=== PATIENT | female | born 1960 | race Two or more races ===

== ENCOUNTER 2020-09-05 07:12 | Day surgery (SDC) | payer BC, OTHER ==
[2020-08-28 17:25] VITALS: BMI 26.2
--- OUTSIDE RECORDS SUMMARY | 2020-09-05 07:00 | XMS ---
:1960 Author Organization [facility] Support Name Relationship Address Phone DEPT OF EDUCATION Unavailable [id number] [place] [address] SCO[address]ER E[address] [facility] [place] [address] Re-disclosure Warning The records that you are about to access may contain information from federally- assisted alcohol or drug abuse programs. If such information is present, then the following federally mandated warning applies: This information has been disclosed to you from records protected by federal confidentiality rules (42 CFR part 2). The federal rules prohibit you from making any further disclosure of this information unless further disclosure is expressly permitted by the written consent of the person to whom it pertains or as otherwise permitted by 42 CFR part 2. A general authorization for the release of medical or other information is NOT sufficient for this purpose. The Federal rules restrict any use of the information to criminally investigate or prosecute any alcohol or drug abuse patient.The records that you are about to access may contain highly sensitive health information, the redisclosure of which is protected by Article 27-F of the [facility] Public Health law. If you continue you may haveaccess to information: Regarding HIV / AIDS; Provided by facilities licensed or operated by the [facility] Office of Mental Health; or Provided by the [facility] Office for People With Developmental Disabilities. If such information is present, then the following [facility] mandated warning applies: This information has been disclosed to you from confidential records which are protected by state law. State law prohibits you from making any further disclosure of this information without the specific written consent of the person to whom it pertains, or as otherwise permitted by law. Any unauthorized further disclosure in violation of state law may result in a fine or assisted sentence or both. A general authorization for the release of medical or other information is NOT sufficient authorization for further disclosure. Insurance Providers Payer name Policy type / Policy ID Covered Covered green party's Policy Plan Coverage type green party ID relationship to Silvestre Information silvestre BC PPO [id number] SP [id number] GHI CBP [id number] SP [id number] 01 OUTPT 1 Results ID Date Data Source [id number] 09/01/2020 10:24:00 AM EDT [facility] Name Value Range Interpretation Description Data Sup porting Code Source(s) Document(s ) SARS [facility] coronavirus 2 RNA This lab was ordered by SALO osorio [facility] and reported by [facility]. ID Date Data Source [id number] 08/02/2020 12:00:00 AM EDT [facility] Name Value Range Interpretation Code Description Data Shelly rce(s) Supporting Document(s ) 2018-nCoV [facility] RNA XXX ROWAN+probe- Imp This lab was ordered by [facility] ([facility]) and reported by [employer] ID Date Data Source [id number] 03/05/2020 12:00:00 AM EDT [facility] Name Value Range Interpretation Code Description Data Shelly rce(s) Supporting Document(s ) 2018-nCoV [facility] RNA XXX ROWAN+probe- Imp [facility] and reported by [employer] Procedure
[~2020-09-05 07:12] MED LIST: VANCOMYCIN 1,000 MG VIAL (RESTRICTED TO ID ONLY) IVPB ONE
[2020-09-05] MEDS ORDERED: CEFAZOLIN 2 GM in DEXTROSE 5%-WATER - 50 ML IVPB ONE (08:00)
[2020-09-05] MEDS ORDERED: TRANEXAMIC ACID 1000 MG/10 ML VIAL IVPUSH ONE (08:00)
--- NOTE | 2020-09-05 08:09 | HP ---
Satellite [facility] - Chief Complaint Chief Complaint: right knee pain - Past Medical History Allergies/Adverse Reactions: Allergies Allergy/AdvReac Type Severity Reaction Status Date / Time No Known Allergies Allergy Verified 08/28/20 17:07 - Current Medications Current Medications: Home Medications Medication Instructions Recorded Amlodipine Besylate 2.5 mg PO DAILY 08/28/20 Krill/Om-3/Dha/Epa/Phospho/Ast 1 each PO DAILY 08/28/20 [Krill Oil 500 mg Softgel] Losartan/Hydrochlorothiazide 1 each PO DAILY 08/28/20 [Losartan-Hctz 100-25 mg Tab] Multivitamin 1 each PO DAILY 08/28/20 Ubidecarenone [Co Q-10] 100 mg PO DAILY 08/28/20 Satellite Physical Exam - Physical Examination Vital Signs: Vital Signs Period Temp Pulse Resp BP Sys/Whitman Pulse Ox Last 24 Hr 98.7 F 76 18 129/72 98 General Appearance: Well Nourished, Well Developed, Alert & Oriented x3 ENT: Clear Lung: Normal air movement Extremities: Other (right knee- +swelling, + ttp, decr rom, nvi, xrays show grade 4 tricompartmental djd) Neurological: Intact, Alert, Oriented Satellite Impression/Plan - Impression/Plan Impression: right knee djd Operative Procedure: right marcell tkr Date to be Performed: 09/05/20
[2020-09-05] MEDS ORDERED: MIDAZOLAM HCL 2 MG/2 ML SINGLE DOSE VIAL ONE ×2 (08:12→09:50)
[2020-09-05] MEDS ORDERED: SODIUM CHLORIDE 0.9% P/F 10 ML VIAL IJ ONE (08:12)
[2020-09-05] MEDS ORDERED: BUPIVACAINE LIPOSOME/PF (EXPAREL) 266 MG/20 ML VIAL ONE (08:12)
[2020-09-05] MEDS ORDERED: VANCOMYCIN 1,000 MG VIAL (RESTRICTED TO ID ONLY) ONE (08:25)
[2020-09-05] MEDS ORDERED: ceFAZolin SODIUM 1 GM VIAL ONE (08:25)
[2020-09-05] MEDS ORDERED: MAGNESIUM HYDROX 2400MG/30ML ORAL SUSPENSION 30 ML CUP PO PRN (09:39)
[2020-09-05] MEDS ORDERED: ONDANSETRON 4 MG/2 ML VIAL IVPUSH PRN (09:39)
[2020-09-05] MEDS ORDERED: MAG HYDROX/AL HYDROX/SIMETH 30 ML UNIT-DOSE CUP PO PRN (09:39)
[2020-09-05] MEDS ORDERED: LACTATED RINGERS SOLUTION 1,000 ML IV SCH (09:45)
[2020-09-05] MEDS ORDERED: PROPOFOL 20 ML ONE ×2 (09:50→10:21)
[2020-09-05] MEDS ORDERED: amLODIPine BESYLATE 5 MG TABLET (FP) PO SCH (10:00)
[2020-09-05] MEDS ORDERED: PATIENT'S OWN MEDICATION (NON-FORMULARY) (Losartan/Hydrochlorothiazide [Losartan-Hctz 100- PO SCH (10:00)
[2020-09-05] MEDS ORDERED: VANCOMYCIN 1,000 MG VIAL (RESTRICTED TO ID ONLY) IVPB ONE (11:08)
--- NOTE | 2020-09-05 11:32 | OP ---
Operative Note - Note: Operative Date: 09/05/20 (kaitlin) Pre-Operative Diagnosis: right knee djd Operation: right marcell tkr Post-Operative Diagnosis: Same as Pre-op Surgeon: Solomon Garcia Television Repairman: Rafael Pelayo Anesthesiologist/AIR VALVE MECHANIC: Billie Nair MD Anesthesia: Spinal, Local Specimens Removed: bone fragments Estimated Blood Loss (mls): 150
[2020-09-05] MEDS ORDERED: oxyCODONE HCL 5 MG TABLET PO PRN (11:45)
[2020-09-05] MEDS ORDERED: ACETAMINOPHEN 325 MG TABLET (FP) ONE (12:19)
[2020-09-05] MEDS: ACETAMINOPHEN 325 MG TABLET (FP) PO SCH ×2 (12:22→18:12)
--- OUTSIDE RECORDS SUMMARY | 2020-09-05 13:50 | XMS ---
:1960 Author Organization [facility] Support Name Relationship Address Phone DEPT OF EDUCATION Unavailable [address] [place] [address] [address] [facility] [place] [address] Re-disclosure Warning The records that you are [...] is protected by Article 27-F of the [facility] Public Health law. If you continue you may haveaccess to information: Regarding HIV / AIDS; Provided by facilities licensed or operated by the [facility] Office of Mental Health; or Provided by the [facility] Office for People With Developmental Disabilities. If such information is present, then the following [facility] mandated warning applies: This information has been [...] law may result in a fine or skilled nursing sentence or both. A general authorization for the release of medical or other information is NOT sufficient authorization for further disclosure. Insurance Providers Payer name Policy type / Policy ID Covered Covered green party's Policy Plan Coverage type green party ID relationship to Silvestre Information silvestre BC PPO [id number] SP [id number] GHI CBP [id number] SP [id number] 01 OUTPT 1 Results ID Date Data Source [id number] 09/01/2020 10:24:00 AM EDT [facility] Name Value Range Interpretation Description Data Sup porting Code Source(s) Document(s ) SARS [facility] coronavirus 2 RNA This lab was ordered by SALO osorio [facility] and reported by [facility]. ID Date Data Source [id number] 08/02/2020 12:00:00 AM EDT [facility] Name Value Range Interpretation Code Description Data Shelly rce(s) Supporting Document(s ) 2018-nCoV [facility] RNA XXX ROWAN+probe- Imp This lab was ordered by [facility] ([facility]) and reported by [employer] ID Date Data Source [id number] 03/05/2020 12:00:00 AM EDT [facility] Name Value Range Interpretation Code Description Data Shelly rce(s) Supporting Document(s ) 2018-nCoV [facility] RNA XXX ROWAN+probe- Imp [facility] and reported by [employer] Procedure
[2020-09-05] MEDS: PANTOPRAZOLE 40 MG TABLET PO SCH (13:55)
--- NOTE | 2020-09-05 14:33 | SPEC ---
DATE OF OPERATION: 09/05/2020 PREOPERATIVE DIAGNOSIS: Degenerative joint disease, right knee. POSTOPERATIVE DIAGNOSIS: Degenerative joint disease, right knee. PROCEDURE: Right total knee replacement with robotic-assisted navigation (Makoplasty). SURGICAL ATTENDING: Solomon Garcia M.D. AIRCRAFT RIVETER: Kwasi Patel ANESTHESIA: Regional and spinal. CLOSURE: A Triathlon cemented total knee system with a 2 femur, 2 tibia with a 50-mm stem, 11 polyethylene, 32 patella, number 1 Vicryl fascia, 0 and 2-0 subcutaneous, 3-0 Monocryl subcuticular with skin glue for skin, 4-0 undyed Vicryl for pin site. ESTIMATED BLOOD LOSS: Negligible. COMPLICATIONS: None. CONDITION: To recovery room in stable condition. DESCRIPTION OF OPERATIVE PROCEDURE: Patient was taken to the operating room on September 05, 2020. Regional and general anesthesia was administered by the anesthesiologist. IV Kefzol and TXA were administered by the anesthesiologist. Well-padded pneumatic tourniquet was placed on the proximal thigh. The right lower extremity was prepped and draped in the usual sterile fashion. The leg was exsanguinated with an Esmarch bandage, and tourniquet was inflated to 275 mmHg. A 12 to 15-cm longitudinal midline incision was incised while centered over the patella. The dissection was carried down to the level of the extensor mechanism with sufficient flaps made to adequately perform the procedure. A medial parapatellar arthrotomy was then performed. We made a cuff of tissue on the patella for later closure. The patella was inverted, the knee was flexed up. The fat pad was excised. The subperiosteal dissection was on the anteromedial proximal tibia around towards the direction of the MCL. The ACL and the PCL were transected and debrided. The meniscal remnants of the medial and lateral meniscus were debrided and removed. This allowed the knee to be able to "be brought forward." The checkpoints were malleted into the tibia and into the femur. Two threaded pins were drilled anteroposteriorly proximal to the knee through the previous incision, through the anterior cortex, then just engaging the posterior cortex. To these pins was assembled the femoral navigation array. One handbreadth below the tibial tubercle, 2 stab incisions were used to drill 2 threaded pins in parallel fashion into the tibia, again through the anterior cortex and just engaging the posterior cortex. To these pins was fastened the tibial arrays. The knee was then registered with the navigation device with center of rotation of the hip, medial and lateral malleoli, both checkpoints, and multiple points on both the femur and the tibia to ensure excellent registration. The navigation device was directed off the "top of the bubbles" on both the femur and the tibia. The navigation passed within less than 0.5 mm to plan. The knee was then thoroughly inspected to remove all osteophytes both medially, laterally, and on the femur and the tibia, and whatever osteophytes were available for dissection. The knee was then taken to extension and to flexion, and stressed in both varus and valgus to assess flexion gaps. The virtual position of the components on the navigation device were then manipulated to optimize the position and to ensure equal gaps in both flexion and extension, and both medially and laterally. The robot was then brought into the field and was registered. The cuts were then made both on the femur and on the tibia as to plan. All osteophytes posteriorly were then removed as well. The gaps were then measured again in flexion and extension to be equal in both flexion and extension and medial and laterally. The femoral notch was then made, as we were doing a posterior stabilizing component, with the appropriate sized box. Trial reduction of the femur achieved excellent [id number] fit. A tibial baseplate of appropriate polyethylene thickness was "floated in the knee." It was ensured to be in the excellent position by navigation devices and was pinned in place. The knee was taken through a range of motion, and found to have excellent stability throughout flexion and extension. The patella was calibrated for thickness and osteotomized down to the appropriate level. The appropriate lollipop was used to drill the lug holes in the patella and the trial button was applied. The knee was taken through a range of motion and found to have excellent tracking of the patella, and patella from full extension to full flexion. Trial components were removed, the keel was punched and drilled, and a sclerotic bone on the tibia was drilled to help with cement interdigitation. The knee was thoroughly irrigated with the pulse antibiotic jack strip assembler. The real components were then cemented in using monitored arrangement cement techniques with antibiotic cement, and pressurization and extension. After the cement was hardened, the knee was thoroughly inspected to remove any extra cement. The real polyethylene component was then clipped into place. Range of motion, stability, and tracking were as described earlier. The checkpoints and the pins were removed. The knee was thoroughly irrigated with antibiotic irrigation. Vancomycin powder was placed into the knee for antibiotic prophylaxis. The medial parapatellar arthrotomy was then closed using number 1 Vicryl interrupted suture. After closure of the deep layer, the knee was taken through a range of motion, and found to have excellent stability of the patella with no dislocation and no undue tension on the repair. The subcutaneous was pulse antibiotic irrigated, and was then closed with 2-0 Vicryl, 3-0 Monocryl subcuticular with the skin glue for the skin. The distal tibial pin site was irrigated thoroughly as well and then closed with 4-0 undyed Vicryl. A sterile Aquacel dressing was applied, followed by a Irwin dressing. Tourniquet was deflated. Total tourniquet time was approximately 75 minutes. No complications. Patient was awakened from anesthesia and transferred to recovery room in stable condition. Postoperative x-rays revealed excellent position of the components. Caprice [id number]
[2020-09-05] MEDS: oxyCODONE HCL 5 MG TABLET PO PRN ×2 (17:01→19:40)
[2020-09-05] MEDS: CEFAZOLIN 2 GM/D5W 2 GM/50 ML ML IVPB SCH (18:12)
[2020-09-05] MEDS: SENNOSIDES/DOCUSATE COMBO (SENNA PLUS) TABLET (UD) PO SCH (21:29)
[2020-09-05] MEDS: oxyCODONE HCL 10 MG SUSTAINED ACTING TABLET PO SCH (22:52)
[2020-09-06] MEDS: CEFAZOLIN 2 GM/D5W 2 GM/50 ML ML IVPB SCH (01:20)
[2020-09-06] MEDS: ACETAMINOPHEN 325 MG TABLET (FP) PO SCH ×5 (06:00→23:50)
[2020-09-06 07:53] LABS: HEMATOCRIT 34.8 % (32.4-45.2); HEMOGLOBIN 11.3 GM/dl (10.7-15.3); MCH 30.5 pg (25.7-33.7); MCHC 32.5 g/dl (32.0-36.0); MEAN CELL VOLUME 93.8 fl (80-96); MEAN PLT VOLUME 9.8 fl (7.5-11.1); PLATELET COUNT 298 K/MM3 (134-434); RBC 3.71 M/mm3 (3.60-5.2); RDW 12.9 % (11.6-15.6); WHITE BLOOD COUNT 7.6 K/mm3 (4.0-10.8)
[2020-09-06] MEDS: SENNOSIDES/DOCUSATE COMBO (SENNA PLUS) TABLET (UD) PO SCH ×2 (09:06→21:15)
[2020-09-06] MEDS: PANTOPRAZOLE 40 MG TABLET PO SCH (09:06)
[2020-09-06] MEDS: ASPIRIN 325 MG TABLET PO SCH (09:06)
[2020-09-06] MEDS: MULTIVITAMINS (DAILY MVI) TABLET (FP) PO SCH (09:07)
[2020-09-06] MEDS: amLODIPine BESYLATE 2.5 MG TABLET (FP) PO SCH (09:07)
--- NOTE | 2020-09-06 09:17 | PN ---
Progress Note (short form) - Note Progress Note: Ortho Pt seen and examined s/p right marcell tkr pod #1. c/o dizziness and nausea. Selected Entries 09/06/20 06:00 Temperature 99.2 F Pulse Rate 79 Respiratory 18 Rate Blood Pressure 151/67 Laboratory Tests 09/06/20 06:57 WBC 7.6 Hgb 11.3 Hct 34.8 Plt Count 298 dressing c/d/i, rom 0-80, calf soft ,nt nvi a/p decrease opiates, change to toradol PT dvt ppx pain control d/c planning for today/tomorrow
--- NOTE | 2020-09-06 09:54 | PN ---
Progress Note (short form) - Note Progress Note: Anesthesia postop note 60 y/o F s/p spinal anesthesia and PNB for marcell knee replacement. POD31, va, aaox3, pain well controlled, sensory motor intact distally.No anesthesia complications.
[2020-09-06] MEDS ORDERED: LOSARTAN 50MG/HCTZ 12.5MG 1 TAB PO SCH (10:00)
[2020-09-06] MEDS: oxyCODONE HCL 10 MG SUSTAINED ACTING TABLET PO SCH (11:21)
--- NOTE | 2020-09-06 13:19 | CONSULT ---
Consultation: REQUESTING PROVIDER: Dr. Solomon Garcia CONSULT REQUEST: We have been asked to medically evaluate this patient post-operatively for nausea and dizziness. HISTORY OF PRESENT ILLNESS: 60 year-old female with a PMH significant for HTN, asthma, COVID-19 infection (March 2020), and OA bilateral knees s/p right SOLITARIO total knee replacement on 09/05/[address] Garcia. Patient became nauseous and light-headed during PT this morning. REVIEW OF SYSTEMS: CONSTITUTIONAL: Absent: fever, chills, diaphoresis, generalized weakness, malaise, loss of appetite, weight change HEENT: Absent: rhinorrhea, nasal congestion, throat pain, throat swelling, difficulty swallowing, mouth swelling, ear pain, eye pain, visual changes CARDIOVASCULAR: Absent: chest pain, syncope, palpitations, irregular heart rate, lightheadedness, peripheral edema RESPIRATORY: Absent: cough, shortness of breath, dyspnea with exertion, orthopnea, wheezing, stridor, hemoptysis GASTROINTESTINAL: +nausea Absent: abdominal pain, abdominal distension, vomiting, diarrhea, constipation, melena, hematochezia GENITOURINARY: Absent: dysuria, frequency, urgency, hesitancy, hematuria, flank pain, genital pain MUSCULOSKELETAL: Absent: myalgia, arthralgia, joint swelling, back pain, neck pain SKIN: Absent: rash, itching, pallor HEMATOLOGIC/IMMUNOLOGIC: Absent: easy bleeding, easy bruising, lymphadenopathy, frequent infections ENDOCRINE: Absent: unexplained weight gain, unexplained weight loss, heat intolerance, cold intolerance NEUROLOGIC: +dizziness Absent: headache, focal weakness or paresthesias, dizziness, unsteady gait, seizure, mental status changes, bladder or bowel incontinence PSYCHIATRIC: Absent: anxiety, depression, suicidal or homicidal ideation, hallucinations. PHYSICAL EXAMINATION Vital Signs - 24 hr 09/05/20 09/05/20 09/05/20 13:05 18:00 19:43 Temperature 97.6 F 99.1 F Pulse Rate 59 L 75 Respiratory 16 18 18 Rate Blood Pressure 140/64 153/67 O2 Sat by Pulse 98 99 99 Oximetry (%) 09/05/20 09/06/20 09/06/20 22:00 01:52 06:00 Temperature 98.6 F 98.7 F 99.2 F Pulse Rate 83 74 79 Respiratory 18 18 18 Rate Blood Pressure 146/76 122/63 151/67 O2 Sat by Pulse 98 96 98 Oximetry (%) GENERAL: Awake, alert, and fully oriented, in no acute distress. LUNGS: Breath sounds equal, clear to auscultation bilaterally. No wheezes, and no crackles. No accessory muscle use. HEART: Regular rate and rhythm, normal S1 and S2 UPPER EXTREMITIES: 2+ pulses, warm, well-perfused. No cyanosis. No clubbing. Cap refill <2 seconds. No peripheral edema. RLE: Surgical dressing c/d/i; +flex/extend toes, sensory intact NEUROLOGICAL: Cranial nerves II-XII intact. Normal speech. Normal gait. PSYCHIATRIC: Cooperative. Good eye contact. Appropriate mood and affect. SKIN: Warm, dry, normal turgor, no rashes or lesions noted. Laboratory Results - last 24 hr 09/06/20 06:57 WBC 7.6 RBC 3.71 Hgb 11.3 Hct 34.8 MCV 93.8 MCH 30.5 MCHC 32.5 RDW 12.9 Plt Count 298 MPV 9.8 Current Medications Generic Name Dose Route Start Last Admin Trade Name Freq PRN Reason Stop Dose Admin Acetaminophen 650 mg 09/05/20 12:00 09/06/20 12:00 Tylenol - PO 09/08/20 11:59 650 mg Q6H VALERI Administration Al Hydroxide/Mg Hydroxide 30 ml 09/05/20 09:39 Mylanta Oral Suspension - PO Q4H PRN DYSPEPSIA Amlodipine Besylate 2.5 mg 09/06/20 10:00 09/06/20 09:07 Norvasc - PO 2.5 mg DAILY VALERI Administration Aspirin 325 mg 09/06/20 08:00 09/06/20 09:06 Asa - PO 325 mg DAILY@0800 VALERI Administration HCTZ/Losartan Potassium 2 tab 09/06/20 10:00 09/06/20 09:06 Hyzaar - PO 2 tab DAILY VALERI Administration Magnesium Hydroxide 30 ml 09/05/20 09:39 Milk Of Magnesia - PO PRN PRN CONSTIPATION Multivitamins/Minerals/Vitamin C 1 tab 09/06/20 10:00 09/06/20 09:07 Tab-A-Vit - PO 1 tab DAILY VALERI Administration Ondansetron HCl 4 mg 09/05/20 09:39 Zofran Injection IVPUSH Q6H PRN NAUSEA Pantoprazole Sodium 40 mg 09/05/20 10:00 09/06/20 09:06 Protonix - PO 40 mg DAILY VALERI Administration Senna/Docusate Sodium 2 tablet 09/05/20 22:00 09/06/20 09:06 Pericolace - PO 2 tablet BID VALERI Administration ASSESSMENT/PLAN: 60 year-old female with a PMH significant for HTN, asthma, COVID-19 infection (March 2020), and OA bilateral knees s/p right SOLITARIO total knee replacement on 09/05/[address] Garcia. Patient became nauseous and light-headed during PT this morning. Nausea Lightheadedness --check orthostatics, IV fluids if indicated; encourage PO fluids --stop opioids, Tylenol for pain; discussed with patient, she is agreeable to this plan Hypertension --BP has been stable, continue losartan and amlodipine, hold HCTZ Asthma --stable COVID negative 09/01 Dispo: We will continue to follow the patient. Thank you for this consultative opportunity. Visit type - Emergency Visit Emergency Visit: No - New Patient This patient is new to me today: Yes Date on this admission: 09/06/20 - Critical Care Critical Care patient: No
[2020-09-06] MEDS ORDERED: SODIUM CHLORIDE 1,000 ML IV SCH (13:30)
[2020-09-07] MEDS ORDERED: ACETAMINOPHEN 325 MG TABLET (FP) PO PRN (00:10)
[2020-09-07] MEDS: ACETAMINOPHEN 325 MG TABLET (FP) PO SCH ×2 (06:55→12:16)
[2020-09-07] MEDS: ASPIRIN 325 MG TABLET PO SCH (09:11)
[2020-09-07] MEDS: MULTIVITAMINS (DAILY MVI) TABLET (FP) PO SCH (09:11)
[2020-09-07] MEDS: PANTOPRAZOLE 40 MG TABLET PO SCH (09:11)
[2020-09-07] MEDS: amLODIPine BESYLATE 2.5 MG TABLET (FP) PO SCH (09:11)
[2020-09-07] MEDS: SENNOSIDES/DOCUSATE COMBO (SENNA PLUS) TABLET (UD) PO SCH (09:12)
--- NOTE | 2020-09-07 09:22 | PN ---
Physical Exam: SUBJECTIVE: Patient seen and examined oob to chair. OBJECTIVE: Vital Signs Period Temp Pulse Resp BP Sys/Whitman Pulse Ox Last 24 Hr 97.5 F-99.1 F 76-99 18-19 133-144/53-72 79-98 GENERAL: Awake, alert, and fully oriented, in no acute distress. LUNGS: Breath sounds equal, clear to auscultation bilaterally. No wheezes, and no crackles. No accessory muscle use. HEART: Regular rate and rhythm, normal S1 and S2 UPPER EXTREMITIES: 2+ pulses, warm, well-perfused. No cyanosis. No clubbing. Cap refill <2 seconds. No peripheral edema. RLE: Surgical dressing c/d/i; +flex/extend toes, sensory intact NEUROLOGICAL: Cranial nerves II-XII intact. Normal speech. Normal gait. PSYCHIATRIC: Cooperative. Good eye contact. Appropriate mood and affect. SKIN: Warm, dry, normal turgor, no rashes or lesions noted. Active Medications Generic Name Dose Route Start Last Admin Trade Name Freq PRN Reason Stop Dose Admin Acetaminophen 650 mg 09/05/20 12:00 09/07/20 06:55 Tylenol - PO 09/08/20 11:59 650 mg Q6H VALERI Administration Acetaminophen 650 mg 09/07/20 00:10 Tylenol - PO Q6H PRN PAIN LEVEL 7 - 10 Al Hydroxide/Mg Hydroxide 30 ml 09/05/20 09:39 Mylanta Oral Suspension - PO Q4H PRN DYSPEPSIA Amlodipine Besylate 2.5 mg 09/06/20 10:00 09/07/20 09:11 Norvasc - PO 2.5 mg DAILY VALERI Administration Aspirin 325 mg 09/06/20 08:00 09/07/20 09:11 Asa - PO 325 mg DAILY@0800 VALERI Administration Losartan Potassium 50 mg 09/07/20 10:00 09/07/20 09:11 Cozaar - PO 50 mg DAILY VALERI Administration Magnesium Hydroxide 30 ml 09/05/20 09:39 Milk Of Magnesia - PO PRN PRN CONSTIPATION Multivitamins/Minerals/Vitamin C 1 tab 09/06/20 10:00 09/07/20 09:11 Tab-A-Vit - PO 1 tab DAILY VALERI Administration Ondansetron HCl 4 mg 09/05/20 09:39 Zofran Injection IVPUSH Q6H PRN NAUSEA Pantoprazole Sodium 40 mg 09/05/20 10:00 09/07/20 09:11 Protonix - PO 40 mg DAILY VALERI Administration Senna/Docusate Sodium 2 tablet 09/05/20 22:00 09/07/20 09:12 Pericolace - PO Not Given BID VALERI ASSESSMENT/PLAN: 60 year-old female with a PMH significant for HTN, asthma, COVID-19 infection (March 2020), and OA bilateral knees s/p right SOLITARIO total knee replacement on 09/05/[address] Garcia. Nausea Lightheadedness --was mildly orthostatic, received NS 1L x 1 with resolution of symtpoms --continue to hold opioids, Tylenol for pain; discussed with patient, she is agreeable to this plan Hypertension --BP has been stable, continue losartan and amlodipine, hold HCTZ, may resume on discharge Asthma --stable COVID negative 09/01 Dispo: We will sign off at this time. Thank you for this consultative opportunity. Visit type - Emergency Visit Emergency Visit: No - New Patient This patient is new to me today: No - Critical Care Critical Care patient: No - Discharge Referral Referred to [facility] No
[2020-09-07 09:58] LABS: HEMATOCRIT 31.9 % (32.4-45.2); HEMOGLOBIN 10.6 GM/dl (10.7-15.3); MCH 30.8 pg (25.7-33.7); MCHC 33.1 g/dl (32.0-36.0); MEAN CELL VOLUME 92.9 fl (80-96); MEAN PLT VOLUME 9.9 fl (7.5-11.1); PLATELET COUNT 282 K/MM3 (134-434); RBC 3.43 M/mm3 (3.60-5.2); RDW 12.7 % (11.6-15.6); WHITE BLOOD COUNT 8.5 K/mm3 (4.0-10.8)
[2020-09-07] MEDS ORDERED: LOSARTAN POTASSIUM 50 MG TABLET PO ONE (10:00)
[2020-09-07] MEDS ORDERED: LOSARTAN POTASSIUM 50 MG TABLET PO SCH (10:00)
--- NOTE | 2020-09-07 10:13 | PN ---
Progress Note (short form) - Note Progress Note: Ortho Pt seen and examined s/p right marcell tkr pod #2. Pt is feeling much better this am. Selected Entries 09/07/20 09:00 Temperature 98.4 F Pulse Rate 86 Respiratory 18 Rate Blood Pressure 133/65 Laboratory Tests 09/07/20 06:57 WBC 8.5 Hgb 10.6 L Hct 31.9 L Plt Count 282 dressing c/d/i, rom 0-80, calf soft ,nt nvi a/p PT dvt ppx pain control d/c home today f/u in 1 week
--- NOTE | 2020-09-07 10:15 | DS ---
Physical Examination Vital Signs: Vital Signs Temperature 98.4 F 09/07/20 09:00 Pulse Rate 86 09/07/20 09:00 Respiratory Rate 18 09/07/20 09:00 Blood Pressure 133/65 09/07/20 09:00 O2 Sat by Pulse Oximetry (%) 98 09/07/20 09:00 Labs: CBC, BMP 09/07/20 06:57 Discharge Summary Problems reviewed: Yes Reason For Visit: OSTEOARTHRITIS Procedures: Principal: right marcell tkr Hospital Course: admitted for elective right marcell tkr, post-op per protocol ,stable for d/c Condition: Good - Instructions Diet, Activity, Other Instructions: Post-op Instructions-Total Knee Replacement Call the office for a follow-up appointment in 1 week - [phone] Aspirin 325mg daily for 6 weeks. Pain medication was sent into your pharmacy. Apply Graduated Compression Stockings (TEDs) to both lower extremities- remove daily for hygiene ONLY Apply Sequential Compression Device (SCDs) to both Lower extremities remove for PT and hygiene ONLY Apply cold packs to affected area for 15 minutes every 2 hours. Physical Therapist will come to your home for the first 5 days. You will be set up with outpatient PT at your first post-operative visit. Patient may ambulate as tolerated-encourage self care (at least every 2-3 hours while awake) with walker or cane Maintain Aquacel (waterproof) dressing to operative wound (will be removed by surgeon at first office visit) Shower with Aquacel dressing in place-if Aquacel integrity compromised, remove and apply dry sterile dressing and notify Orthopedist. DO NOT SHOWER unless Orthopedists approves without Aquacel dressing CONTACT THE OFFICE FOR ANY CHANGE IN YOUR CONDITION (for example-fever greater than 102 degrees, excessive bleeding from operative site, purulent drainage, severe swelling or pain) GO TO THE EMERGENCY ROOM IF THERE IS A MEDICAL EMERGENCY Knee Precautions: * Keep a rolled towel under affected heel while in bed or chair (to keep knee in extension) * Keep affected leg elevated except during mealtimes * DO NOT PLACE PILLOW UNDER AFFECTED KNEE * If you have any questions, please do not hesitate to call the office - [phone]. Referrals: Solomon Garcia MD [Staff Physician] - Disposition: VNS/HOME HEALTH CARE - Home Medications Comprehensive Discharge Medication List: Ambulatory Orders Amlodipine Besylate 2.5 mg PO DAILY 08/28/20 Krill/Om-3/Dha/Epa/Phospho/Ast [Krill Oil 500 mg Softgel] 1 each PO DAILY 08/28/20 Losartan/Hydrochlorothiazide [Losartan-Hctz 100-25 mg Tab] 1 each PO DAILY 08/28/20 Multivitamin 1 each PO DAILY 08/28/20 Ubidecarenone [Co Q-10] 100 mg PO DAILY 08/28/20 Aspirin [ASA -] 325 mg PO DAILY@0800 tablet 09/05/20 Oxycodone HCl/Acetaminophen [Percocet 5-325 mg Tablet -] 1 - 2 tab PO Q6H #50 tab MDD 8 09/05/20
[2020-09-07 14:11] VITALS: BP 120/60; PULSE 80; TEMP 99
--- NOTE | 2020-09-07 16:01 | PATH ---
Surgical Pathology Report Patient Name: NATIVIDAD LAW Med. Rec. #: [id number] /Age/Gender: 1960 (Age: 60) / F Account: [id number] Location: [facility] MED-SURG Taken: 09/05/2020 Received: 09/05/2020 Reported: 09/07/2020 Physicians: Solomon Garcia M.D. Specimen(s) Received RIGHT KNEE BONES Clinical History Osteoarthritis right knee Final Diagnosis KNEE BONES, RIGHT, TOTAL KNEE REPLACEMENT: DEGENERATIVE JOINT DISEASE. Electronically Signed Keyana Moya M.D. Gross Description Received in formalin labeled "right knee bones," is an 11.0 x 9.5 x 2.0 cm aggregate of multiple portions of bone and soft tissue, consistent with knee bones. There are multiple areas of eburnation present, measuring up to 1.7 cm in greatest dimension. The articular surfaces are darden-brown and focally granular. The underlying trabecular bone is yellow and hard. Bell Cleaner sections are submitted in one cassette, following decalcification. /[facility]
[2020-09-08] MEDS ORDERED: LOSARTAN POTASSIUM 50 MG TABLET PO SCH (10:00)
== END 2020-09-07 14:30 | disposition home health service (06) ==
LOC: FM/S 07:12 → FASUSAT 07:12 → EDSTATUS 08:00 → FASUSAT 09-07 14:30
PROVIDERS: ATTEND Orthopaedic Surgery
PROC: 8E0YXBZ Computer Assisted Procedure of Lower Extremity (ICD-10-PCS; 2020-09-05)
PROC: 8E0Y0CZ Robotic Assisted Procedure of Lower Extremity, Open Approach (ICD-10-PCS; 2020-09-05)
PROC: 0SRC0J9 Replacement of Right Knee Joint with Synthetic Substitute, Cemented, Open Approach (ICD-10-PCS; principal; 2020-09-05 10:03)
DX: M17.11 Unilateral primary osteoarthritis, right knee (principal); I10 Essential (primary) hypertension; J45.909 Unspecified asthma, uncomplicated; Z86.19 Personal history of other infectious and parasitic diseases
CPT/HCPCS: 20985; 27447; C1776; S2900; 36415; 73560-TC-RT-FY; 85027; 88304-TC; 88311-TC; 94760; 97010-GP; 97116-GP; 97163-GP

== ENCOUNTER 2022-12-24 09:20 | Day surgery (SDC) | payer BC, OTHER ==
[2022-12-17 14:54] VITALS: BMI 27.4
[~2022-12-24 09:20] MED LIST changes: +CEFAZOLIN 2 GM in DEXTROSE 5%-WATER - 50 ML IVPB ONE; +LACTATED RINGERS SOLUTION 1,000 ML IV SCH; +MAG HYDROX/AL HYDROX/SIMETH 30 ML UNIT-DOSE CUP PO PRN; +ONDANSETRON 4 MG/2 ML VIAL IVPUSH PRN; +TRANEXAMIC ACID 1000 MG/10 ML VIAL IVPUSH ONE; -VANCOMYCIN 1,000 MG VIAL (RESTRICTED TO ID ONLY) IVPB ONE
[2022-12-24] MEDS ORDERED: PATIENT'S OWN MEDICATION (NON-FORMULARY) (Losartan/Hydrochlorothiazide [Losartan-Hctz 100- PO SCH (10:00)
[2022-12-24] MEDS: CELECOXIB 200 MG CAPSULE PO ONE ×2 (10:14→16:42)
[2022-12-24] MEDS ORDERED: ceFAZolin SODIUM 1 GM VIAL ONE ×2 (11:31→12:44)
[2022-12-24] MEDS ORDERED: VANCOMYCIN 1,000 MG VIAL (RESTRICTED TO ID ONLY) ONE (11:31)
[2022-12-24] MEDS ORDERED: MIDAZOLAM HCL 2 MG/2 ML SINGLE DOSE VIAL ONE ×2 (12:05→12:32)
[2022-12-24] MEDS ORDERED: BUPIVACAINE HCL/PF 0.5% (5MG/ML) 10 ML VIAL ONE (12:06)
[2022-12-24] MEDS ORDERED: SODIUM CHLORIDE 0.9% P/F 10 ML VIAL IJ ONE (12:06)
[2022-12-24] MEDS ORDERED: BUPIVACAINE LIPOSOME/PF (EXPAREL) 266 MG/20 ML VIAL ONE (12:06)
[2022-12-24] MEDS ORDERED: TRANEXAMIC ACID 1000 MG/10 ML VIAL ONE (12:44)
[2022-12-24] MEDS ORDERED: KETOROLAC TROMETHAMINE 30 MG/1 ML VIAL ONE (12:44)
[2022-12-24] MEDS ORDERED: ONDANSETRON 4 MG/2 ML VIAL ONE (12:44)
[2022-12-24] MEDS ORDERED: DEXAMETHASONE SOD PHOSPHATE 4 MG/1 ML VIAL ONE (12:44)
[2022-12-24] MEDS ORDERED: PROPOFOL 40 ML ONE (13:29)
[2022-12-24] MEDS ORDERED: ONDANSETRON 4 MG/2 ML VIAL IVPUSH PRN (14:54)
[2022-12-24] MEDS ORDERED: oxyCODONE HCL 5 MG TABLET PO PRN ×2 (14:54)
[2022-12-24] MEDS: ACETAMINOPHEN 500 MG TABLET (FP) PO SCH ×2 (15:30→21:00)
[2022-12-24] MEDS ORDERED: ACETAMINOPHEN 500 MG TABLET (FP) ONE (15:30)
[2022-12-24] MEDS: PANTOPRAZOLE 40 MG TABLET PO SCH (16:43)
[2022-12-24] MEDS: MULTIVITAMINS (DAILY MVI) TABLET (FP) PO SCH (16:44)
[2022-12-24] MEDS: SENNOSIDES/DOCUSATE COMBO (SENNA PLUS) TABLET (UD) PO SCH (22:11)
[2022-12-24] MEDS: CEFAZOLIN SODIUM 2 GM in DEXTROSE 5%-WATER 100 ML IVPB SCH (22:11)
[2022-12-24 22:30] VITALS: RESP 18
[2022-12-25] MEDS: ACETAMINOPHEN 500 MG TABLET (FP) PO SCH ×3 (02:49→16:09)
[2022-12-25] MEDS: CEFAZOLIN SODIUM 2 GM in DEXTROSE 5%-WATER 100 ML IVPB SCH (05:35)
[2022-12-25 08:38] LABS: HEMATOCRIT 34.2 % (32.4-45.2); HEMOGLOBIN 11.7 G/dL (10.7-15.3); MCH 31.4 pg (25.7-33.7); MCHC 34.1 g/dl (32.0-36.0); MEAN CELL VOLUME 92.1 fl (80-96); MEAN PLT VOLUME 9.3 fl (7.5-11.1); PLATELET COUNT 275.5 10^3/uL (134-434); RBC 3.71 10^6/uL (3.60-5.2); RDW 14.6 % (11.6-15.6); WHITE BLOOD COUNT 9.9 10^3/uL (4.0-10.8)
[2022-12-25] MEDS: SENNOSIDES/DOCUSATE COMBO (SENNA PLUS) TABLET (UD) PO SCH (09:05)
[2022-12-25] MEDS: MULTIVITAMINS (DAILY MVI) TABLET (FP) PO SCH (09:05)
[2022-12-25] MEDS: PANTOPRAZOLE 40 MG TABLET PO SCH (09:05)
[2022-12-25] MEDS ORDERED: LOSARTAN 50MG/HCTZ 12.5MG 1 TAB PO SCH (10:00)
[2022-12-25] MEDS ORDERED: amLODIPine BESYLATE 5 MG TABLET (FP) PO SCH (10:00)
[2022-12-25] MEDS ORDERED: ASPIRIN 325 MG TABLET PO SCH (10:00)
[2022-12-25 15:02] VITALS: BP 129/50; PULSE 70; TEMP 98.1
== END 2022-12-25 16:32 | disposition home health service (06) ==
LOC: FASUSAT 09:20 → FM/S 16:06 → FASUSAT 12-25 16:32
PROVIDERS: ATTEND Orthopaedic Surgery
PROC: 8E0Y0CZ Robotic Assisted Procedure of Lower Extremity, Open Approach (ICD-10-PCS; 2022-12-24)
PROC: 0SRD0J9 Replacement of Left Knee Joint with Synthetic Substitute, Cemented, Open Approach (ICD-10-PCS; principal; 2022-12-24 12:54)
DX: M17.12 Unilateral primary osteoarthritis, left knee (principal); I10 Essential (primary) hypertension
CPT/HCPCS: 20985; 27447; C1776; S2900; 36415; 73560-TC-LT-FY; 85027; 94760; 97010-GP; 97116-GP; 97162-GP; C1713; C1889